=== PATIENT | male | born 1955 | race Caucasian/White ===

== ENCOUNTER 2021-06-19 10:00 | Outpatient (CLI) | payer MEDICAID ==
[~2021-06-19] VITALS: Ht 165.1 cm; Wt 59.0 kg
== END 2021-06-19 12:00 | disposition home or self-care (01) ==
LOC: SLB 10:00 → EDSTATUS 06-23 12:30
PROVIDERS: ATTEND Internal Medicine Gastroenterology
DX: U07.1 COVID-19 (principal); Z01.812 Encounter for preprocedural laboratory examination; R10.9 Unspecified abdominal pain; K59.00 Constipation, unspecified
CPT/HCPCS: 36415; 87635-QW